=== PATIENT | female | born 1950 | race Caucasian/White ===

== ENCOUNTER 2016-08-15 08:43 | Inpatient (IN) | payer MEDICARE ==
--- NOTE | 2016-08-12 09:37 | HP ---
DATE OF CLINIC: 08/03/2016 JUDIE LOPEZ : 1950 PLANNED PROCEDURE: Right Total Knee Arthroplasty DATE OF SURGERY: August 15, 2016 SURGEON: Varinder Vann M.D. PCP: Jimi Zaragoza M.D. HISTORY OF PRESENT ILLNESS Judie Lopez is a 66 year old female. * Medication list reviewed with patient allergy list reviewed with patient. Mrs. Lopez is in today pre-operatively for her upcoming right total knee arthroplasty with Dr. Vann on 08/15/16. Patient presents in good spirits and is ready to proceed. She denies recent illness, change in health, or prior surgical complications. Her recent consult with Dr. Vann follows: 66-year-old female here for a consultation with respect to her right knee. She is a previous patient of Dr. Fraga, but has recently been seen by Wil on 12/23/15. She gives a history of a remote traumatic injury to her knee with an ACL tear, medial meniscal tear and medial collateral ligament tear. Specific details are unclear. She had an arthroscopy in [address] Newman at [facility] with some improvement. Unfortunately over greater than 5 years, she has had progressive weight-bearing related discomfort that is affecting her function. This is more notable at started, also with loaded flexion such as stairs. In addition, she notes an increase in right knee deformity. She has sensation of "catching and popping". She does use ibuprofen with some help. She continues to try walking for exercise as well as swimming. No night pain, mild rest pain, no hip pain, no radicular symptoms. She has no significant comorbidities. She is recovering from a distal radius fracture which has been managed by Dr. Benoit. In addition, she has mitral valve prolapse by echocardiogram. She has had bone density study that she reports as "normal". CURRENT MEDICATION * Fish Oil 1000 MG Capsule 1 once a day 0 days, 0 refills PAST MEDICAL/SURGICAL HISTORY Reported: Surgical / Procedural: Appendectomy 12/1958 and Arthroscopy Right knee 11/20/04. SOCIAL HISTORY Behavioral: Caffeine use and non-smoker never smoked. Smoking status: Never smoker. Alcohol: Alcohol use. ALLERGIES * Demerol REVIEW OF SYSTEMS Systemic: No fever and no recent weight change. Head: No head symptoms. Cardiovascular: No cardiovascular symptoms. Pulmonary: No pulmonary symptoms. Gastrointestinal: No gastrointestinal symptoms. Psychological: No psychological symptoms. Skin: No skin lesions and no rash. PHYSICAL FINDINGS * Vitals taken 08/03/2016 10:07 am BP-Sitting L 132/81 mmHg 100 - 120/56 - 80 BP Cuff Size Regular Pulse Rate-Sitting 74 bpm 50 - 100 Temp-Oral 97.6 F 96 - 101 Height 62 in 59 - 68 Weight 142 lbs 96 - 178 Body Mass Index 26.0 kg/m2 Body Surface Area 1.65 m2 Pain Level 2 Ears, Nose, Throat: * ENT: normal. Lungs: * Clear to auscultation. Cardiovascular: Heart Rate and Rhythm: * Normal with a systolic murmur of . Abdomen: * Normal. Neurological: Motor: * Dominant Hand = Right Hand. Patient is a thin, well-developed, well-nourished female in no acute distress, normal-appearing mood and affect. She ambulates with a stiff-legged antalgic gait notable at startup, although then becomes relatively symmetric heel-to-toe. On standing she has fairly notable varus with a varus thrust on weight-bearing. Evaluation of the right knee shows genu varum. This is correctable to neutral. She is tender medial greater than lateral. There is mild swelling. There seems to be more focally laterally likely because of her deformity, trace effusion. Motion is 0-120 actively, 0-125 passively. Patella tracks well. There is some crepitation with compression that is uncomfortable. She is tender over the lateral and medial jointline, fairly diffuse. She does have positive anterior drawer, asymmetric Tevin's. Negative posterior sag, 1+ laxity to varus stress, stable to valgus. Mildly tender over the anteromedial proximal tibia. Calf is soft and NT. Distal light touch sensation and motor function are intact and symmetric. Pulses are palpable. Gentle rotation of the hip is non-irritable. Contralateral knee shows neutral alignment. No focal tenderness with normal ligamentous exam. Motion 0-125 degrees. TESTS Recent radiographs from 12/23/15 were reviewed with the patient. These show significant flattening medial femoral condyle with sloping proximal medial tibial wear and periarticular sclerosis as well as marginal spurring and joint space narrowing. Lateral compartment is relatively well preserved. Patellofemoral articulation shows spurring lateral facet with reasonable alignment. ASSESSMENT * Localized primary osteoarthritis of the right knee Advanced degenerative disease, right knee, with varus deformity. PREVIOUS TESTS * Test: CBC WITH DIFF Report Date: 07/27/2016 WBC 7.5 10*3/mL BASOPHIL 0.9 % RBC 4.87 10*6/uL NEUTROPHILS 55.3 % MCH 30.0 pg MCHC 33.3 g/dL RDW 12.4 % MCV 89.9 fL PLATELET COUNT 276 10*3/mL IMM NEUT % 0.1 % IMM NEUT # 0.0 10*3/mL MONOCYTES 7.2 % EOSINOPHIL 4.4 % High HCT 43.8 % HGB 14.6 g/L LYMPHOCYTE 32.1 % ANC 4.1 10*3/mL * Test: URINALYSIS Report Date: 07/27/2016 GLUCOSE NEGATIVE PH,URINE 6.0 SPEC. GRAVITY 1.015 KETONE NEGATIVE NITRITE NEGATIVE BLOOD NEGATIVE BILIRUBIN NEGATIVE APPEARANCE CLEAR PROTEIN NEGATIVE COLOR YELLOW LEUK ESTERASE NEGATIVE UROBILINOGEN NORMAL * Test: PROTHROMBIN TIME Report Date: 07/27/2016 PROTIME 9.6 s INR 0.91 * Test: PARTIAL THROMBOPLASTIN TIME Report Date: 07/27/2016 APTT 24.2 s Low * Test: COMPREHENSIVE METABOLIC PANEL Report Date: 07/27/2016 ALT/SGPT 19 U/L ALBUMIN 4.3 g/dL ALB/GLOB RATIO 1.8 BUN 18 mg/dL BUN/CREAT RATIO 26 High CALCIUM 9.8 mg/dL GLUCOSE 84 mg/dL CREATININE 0.7 mg/dL SODIUM 137 meq/L POTASSIUM 4.2 meq/L CHLORIDE 102 meq/L CARBON DIOXIDE 28 meq/L ANION GAP 11 meq/L TOT PROTEIN 6.7 g/dL GLOBULIN 2.4 g/dL BILI,TOTAL 0.3 mg/dL AST/SGOT 22 U/L ALK PHOSPHATASE 68 U/L GFR 83 * Test: MRSA SCREEN Report Date: 07/28/2016 MRSA SCREEN NEGATIVE * Test: MSSA SCREEN Report Date: 07/28/2016 MSSA SCREEN NEGATIVE FOR STAPHYLOCOCCUS AUREUS THERAPY * Patient fall risk screen negative. Patient fall risk screen positive. * Patient eligible for fall risk assessment. * Patient received fall risk assessment. COUNSELING/EDUCATION * Education and counseling Total Joint Book given PLAN * Aftercare following joint replacement surgery TraMADol HCl 50 MG TABS, four times a day, 10 days, 0 refills OxyCODONE HCl 5 MG TABS, 1or 2 tablets every 4 to 6 hours as needed, 5 days, 0 refills OxyCONTIN 10 MG T12A, 1 twice a day, 10 days, 0 refills * Total knee arthroplasty -Right I talked to the patient regarding my thoughts and findings. We reviewed radiographs as well as the progressive nature of degenerative arthritis. Definitive management of this would entail arthroplasty. We did discuss symptomatic measures as well. We reviewed the limitations, expectations as well as risks and possible complications of total joint replacement. After discussion she would like to proceed. We did discuss patient specific instrumentation. I would plan a Legion Visionaire construct. She is interested in proceeding in July. I think that is reasonable. She will be enrolled in the arthroplasty program and we would see her back preoperatively for additional discussion and review. Discussed with patient in detail the limitations, expectations as well as risks and possible complications of surgery including, but not limited to wound problems or infection, neurovascular injury, continued knee pain or dysfunction, including the possibility of prosthetic wear or failure over time that may require additional operative or non-operative treatment. Patient also realizes the perioperative risks including risks associated with anesthesia and would like to proceed. A full PAR conference was held, questions and concerns addressed and informed consent was obtained. Patient will be sent from my office for completion of the preoperative workup[facility]. Patient will use aspirin 325mg daily for 6 weeks postoperatively for DVT prophylaxis. Patient would like to perform their postop PT at [facility] with total knee arthroplasty protocol. CARE TEAM Jimi Zaragoza MD [facility] CC: Jiim Zaragoza MD, PT [facility] RS/sg
[2016-08-15] MEDS ORDERED: CELECOXIB 200 MG CAPSULE PO ONE (11:30)
[2016-08-15] MEDS ORDERED: GABAPENTIN 600 MG TABLET PO ONE (11:30)
[2016-08-15] MEDS ORDERED: FAMOTIDINE 20 MG TABLET PO ONE (11:30)
[2016-08-15] MEDS ORDERED: CLONIDINE HCL 0.1 MG/24 HR (7 DAY PATCH) TD SCH (11:30)
[2016-08-15] MEDS ORDERED: TRAMADOL HCL 50 MG TABLET PO ONE (11:30)
[2016-08-15] MEDS ORDERED: ONDANSETRON 4 MG/2ML 2 ML VIAL IV ONE (11:30)
[2016-08-15] MEDS ORDERED: CEFAZOLIN SODIUM 2 GRAM PREMIX 100 ML IV PRN (11:30)
[2016-08-15] MEDS ORDERED: OXYCODONE HCL 10 MG TAB.SR PO ONE ×2 (11:30→12:18)
[2016-08-15] MEDS ORDERED: LACTATED RINGERS 1,000 ML ONE (11:35)
[2016-08-15] MEDS ORDERED: IV START KIT ONE (11:35)
[2016-08-15] MEDS ORDERED: PROPOFOL 20 ML IV ONE ×4 (11:35→15:12)
[2016-08-15] MEDS ORDERED: LIDOCAINE 2% (PRES FREE) 5 ML VIAL ONE (11:35)
[2016-08-15] MEDS ORDERED: FAMOTIDINE 20 MG TABLET ONE (12:18)
[2016-08-15] MEDS ORDERED: ONDANSETRON 4 MG/2ML 2 ML VIAL ONE (12:18)
[2016-08-15] MEDS ORDERED: TRAMADOL HCL 50 MG TABLET ONE (12:18)
[2016-08-15] MEDS ORDERED: CLONIDINE HCL 0.1 MG/24 HR (7 DAY PATCH) TD ONE (12:19)
[2016-08-15] MEDS ORDERED: GABAPENTIN 600 MG TABLET ONE (12:19)
[2016-08-15] MEDS ORDERED: CELECOXIB 200 MG CAPSULE ONE (12:19)
[2016-08-15] MEDS ORDERED: FENTANYL 250 MCG/5 ML AMP ONE (12:53)
[2016-08-15] MEDS ORDERED: MIDAZOLAM HCL 5 MG/5 ML VIAL ONE (12:53)
[2016-08-15] MEDS ORDERED: SPINAL PROCEDURAL TRAY 1 EACH ONE (12:56)
[2016-08-15] MEDS ORDERED: ROPIVACAINE 0.2% 20 ML VIAL ONE (12:56)
[2016-08-15] MEDS ORDERED: NERVE BLOCK PROCEDURAL TRAY 1 EACH ONE (12:56)
[2016-08-15] MEDS ORDERED: POLYMYXIN B SULFATE 500,000 UNITS, BACITRACIN 25,000 UNITS in SODIUM CHLORIDE 3 L IRRIG... IR PRN (13:30)
[2016-08-15] MEDS ORDERED: BUPIVACAINE 0.25% (MDV) 24 ML, MORPHINE SULFATE 8 MG, EPINEPHRINE 0.3 MG in SODIUM CHLO... IF PRN (13:30)
[2016-08-15] MEDS ORDERED: BUPIVACAINE 0.25% (MDV) 20 ML in SODIUM CHLORIDE 0.9% FLUSH 20 ML IF PRN (13:30)
[2016-08-15] MEDS ORDERED: TRANEXAMIC ACID 1,000 MG in SODIUM CHLORIDE 0.9% 100 ML IV PRN (13:30)
[2016-08-15] MEDS ORDERED: DEXAMETHASONE SOD PHOS 4 MG/1 ML VIAL ONE (14:46)
[2016-08-15] MEDS ORDERED: ONDANSETRON 4 MG/2ML 2 ML VIAL IV PRN ×2 (14:51→17:21)
[2016-08-15] MEDS ORDERED: EPHEDRINE SULFATE UD SYR 25 MG 25 MG/5 ML SYRINGE IV ONE ×2 (14:51→15:21)
[2016-08-15] MEDS ORDERED: NALOXONE HCL 0.4 MG/ML VIAL IV PRN (14:51)
[2016-08-15] MEDS ORDERED: ATROPINE SULFATE 0.4 MG/1 ML VIAL IV PRN (14:51)
[2016-08-15] MEDS ORDERED: HYDROMORPHONE HCL 1 MG/ML SYRINGE IV PRN (14:51)
[2016-08-15] MEDS ORDERED: PROMETHAZINE HCL 25 MG/ML VIAL IM PRN (14:51)
[2016-08-15] MEDS ORDERED: FENTANYL 100 MCG/2 ML VIAL IV PRN (14:51)
[2016-08-15] MEDS ORDERED: LACTATED RINGERS 1,000 ML IV SCH (15:00)
[2016-08-15] MEDS ORDERED: ON-Q PUMP/ROPIVACAINE 0.2% 450 ML ONE (16:10)
[2016-08-15] MEDS: ON-Q PUMP/ROPIVACAINE 0.2% 450 ML in PREMIX BAG 1 EACH NB PRN (16:40)
--- NOTE | 2016-08-15 16:42 | PCMBPN ---
Brief Post Op Note: Date of Procedure: 08/15/16 Preoperative Diagnosis: right knee DJD Postoperative Diagnosis: same Procedure: right TKA Surgeon: Varinder Vann MD Assist: Carlos (APOLINAR) Anesthesia: spinal/add block (Silvia) Condition: stable to PAR Complications: none IV Fluids: 1800 mLs of LR Urine Output: 175 mLs Estimated Blood Loss: 150 mLs Tourniquet Time: ~45 minutes Specimens: [N/A] Implants: Legion Drains: none
[2016-08-15] MEDS ORDERED: TEMAZEPAM 15 MG CAPSULE PO PRN (17:21)
[2016-08-15] MEDS ORDERED: OXYCODONE HCL 5 MG TABLET PO PRN (17:21)
[2016-08-15] MEDS ORDERED: CALCIUM CARBONATE 500 MG TAB.CHEW PO PRN (17:21)
[2016-08-15] MEDS ORDERED: HYDROMORPHONE HCL 0.5 MG/0.5 ML SYRINGE IV PRN (17:21)
[2016-08-15] MEDS ORDERED: KETOROLAC TROMETHAMINE 30 MG/ML 1 ML VIAL IV PRN (17:21)
--- NOTE | 2016-08-15 17:52 | RAD ---
EXAMINATION: KNEE RIGHT 1 OR 2 VIEWS INDICATION:Status post right total knee arthroplasty. TECHNIQUE: 2 views of the right knee were obtained. COMPARISON: Presurgical study dated 12/18/2015. A Right total knee arthroplasty is noted. No hardware fracture or loosening is identified. Alignment is anatomic. Destruction of the soft tissues compatible to recent postsurgical changes noted. No adjacent fractures identified. IMPRESSION: Satisfactory immediate postoperative appearance right total knee arthroplasty.
[2016-08-15 17:56] VITALS: BMI 24.7
[2016-08-15] MEDS ORDERED: PUMP TUBING ONE (19:37)
[2016-08-15] MEDS: D5 1/2NS with 20 mEq KCL 1,000 ML IV SCH (19:45)
[2016-08-15] MEDS ORDERED: ROSUVASTATIN CALCIUM 10 MG TABLET PO SCH (20:00)
[2016-08-15] MEDS: DOCUSATE SODIUM 100 MG CAPSULE PO SCH (21:37)
[2016-08-15] MEDS: ASCORBIC ACID 500 MG TABLET PO SCH (21:37)
[2016-08-15] MEDS ORDERED: CEFAZOLIN SODIUM 1 GRAM PREMIX 50 ML IV ONE (23:25)
[2016-08-15] MEDS: ACETAMINOPHEN 500 MG TABLET PO SCH (23:29)
[2016-08-15] MEDS: CEFAZOLIN SODIUM 1 GRAM PREMIX 1 G in Premix (D5W) 50 ml 1 EACH IV SCH (23:29)
[2016-08-15] MEDS ORDERED: TRAMADOL HCL 50 MG TABLET PO PRN (23:30)
[2016-08-16] MEDS: D5 1/2NS with 20 mEq KCL 1,000 ML IV SCH ×3 (03:58→18:00)
[2016-08-16] MEDS: ACETAMINOPHEN 500 MG TABLET PO SCH ×3 (04:01→17:18)
[2016-08-16] MEDS: CEFAZOLIN SODIUM 1 GRAM PREMIX 1 G in Premix (D5W) 50 ml 1 EACH IV SCH (05:47)
[2016-08-16 06:15] LABS: HEMATOCRIT 36.6 % (37.0-47.0); HEMOGLOBIN 11.7 gm/l (12.0-16.0); MEAN CELL VOLUME 93.4 fl (81.0-99.0); MEAN CORPUSCULAR HEMOGLOBIN 29.8 pg (27.0-31.0); RED CELL DISTRIBUTION WIDTH 12.6 % (11.5-14.5)
[2016-08-16 06:31] LABS: CALCIUM 8.4 mg/dL (8.6-10.3)
[2016-08-16] MEDS: ON-Q PUMP/ROPIVACAINE 0.2% 450 ML in PREMIX BAG 1 EACH NB PRN ×4 (08:05→14:50)
[2016-08-16] MEDS ORDERED: PNEUMOCOCCAL 23-VAL P-SAC VAC 0.5 ML VIAL IM V ONE (09:00)
[2016-08-16] MEDS ORDERED: MULTIVITAMINS 1 TAB TABLET PO SCH (09:00)
[2016-08-16] MEDS ORDERED: ASPIRIN (ENTERIC COATED) 325 MG TABLET.EC PO SCH (09:00)
[2016-08-16] MEDS ORDERED: CELECOXIB 200 MG CAPSULE PO SCH (09:00)
[2016-08-16] MEDS: DOCUSATE SODIUM 100 MG CAPSULE PO SCH (10:28)
[2016-08-16] MEDS: ASCORBIC ACID 500 MG TABLET PO SCH (10:29)
[2016-08-16] MEDS ORDERED: REMOVE PATCH 1 EACH UNIT TD SCH (11:30)
--- NOTE | 2016-08-16 13:11 | PDOC43 ---
- Subjective Findings: Pt seen this afternoon up and doing well. She is sitting in recliner. Pain is minimal and has been doing PT throughout the morning. Subjective: Reports Pain Tolerable, Denies Chest Pain, Denies Shortness of Breath, Denies Nausea, Denies Vomiting, Denies Fever - Objective Vital Signs Temperature 98.0 F 08/16/16 11:28 Pulse Rate 67 08/16/16 11:28 Respiratory Rate 16 08/16/16 11:28 Blood Pressure 108/68 08/16/16 11:28 O2 Saturation by Pulse Oximetry 100 08/16/16 11:28 Oxygen Delivery Method Room Air Oxygen Flow Rate 0 Laboratory 08/16/16 05:45 08/16/16 05:45 08/16/16 05:45 RBC 3.92 L MCHC 32.0 L Estimated GFR 123 H Calcium 8.4 L Active Medication Orders Category Date Time Status Acetaminophen [Tylenol] Med 08/15/16 23:00 Active 1,000 mg PO Q6H Ascorbic Acid [Vitamin C] Med 08/15/16 21:00 Active 500 mg PO BID Aspirin (Enteric Coated) [Ecotrin] Med 08/16/16 09:00 Active 325 mg PO DAILY Bisacodyl [Dulcolax] Med 08/18/16 16:36 Active 10 mg [place] DAILY PRN Calcium Carbonate [Tums] Med 08/15/16 17:21 Active 1,000 - 2,000 mg PO Q2H PRN Celecoxib [Celebrex] Med 08/16/16 09:00 Active 200 mg PO DAILY D5 1/2NS with 20 mEq KCL [D51/2NS with 20 mEq KCL] 1, Med 08/15/16 17:21 Active 000 ml IV 125 mls/hr Docusate Sodium [Colace] Med 08/15/16 21:00 Active 100 mg PO BID Hydromorphone HCl [Dilaudid] Med 08/15/16 17:21 Active 0.5 mg IV Q1H PRN Ketorolac Tromethamine [Toradol] Med 08/15/16 17:21 Active 30 mg IV Q6H PRN Magnesium Hydroxide [Milk of Magnesia] Med 08/16/16 16:36 Active 30 ml PO DAILY PRN Multivitamins [One-A-Day] Med 08/16/16 09:00 Active 1 tab PO DAILY On-Q Pump/Ropivacaine 0.2% 450 ml Med 08/15/16 17:21 Active Premix Bag [Premix Fluid] 1 each NB Q50H Ondansetron 4 mg/2ml Vial [Zofran] Med 08/15/16 17:21 Active 4 - 6 mg IV Q6H PRN Oxycodone HCl [Roxicodone] Med 08/15/16 17:21 Active 5 - 10 mg PO Q4H PRN Remove Patch Med 08/16/16 16:36 Once 1 each TD X1 ONE Rosuvastatin Calcium [Crestor] Med 08/15/16 20:00 Active 10 mg PO QPM Sodium Chloride 0.9% Flush [Normal Saline 10ml Flush] Med 08/15/16 17:21 Active 10 - 50 ml IV PRN PRN Sodium Chloride 0.9% Flush [Normal Saline 10ml Flush] Med 08/16/16 01:00 Active 10 ml IV Q8HR Temazepam [Restoril] Med 08/15/16 17:21 Active 15 mg PO BEDTIME PRN Tramadol HCl [Ultram] Med 08/15/16 23:30 Active 50 mg PO Q6H PRN Intake and Output 08/14/16 08/15/16 08/16/16 23:59 23:59 23:59 Intake Total 2083 Output Total 1250 Balance 833 General: Afebrile HEENT: Atraumatic Lungs: Normal Air Movement Abdomen: Non-Distended Skin: Normal Color Neurological: Alert, Oriented x 4 Psych/Mental Status: Normal Affect, Normal Mood - Right Lower Extremity Motor: Extensor Hallucis Longus: 5/5, Tibialis Anterior: 5/5, Gastrocnemius: 5/5 , Peroneals: 5/5, Quadriceps: 3/5 Gross Sensation to Light Touch: Present: Deep Peroneal Nerve, Superficial Peroneal Nerve Motion: Calf soft NT Rom knee 0-85 Ind SLR - Problems (1) Status post right knee replacement Status: AcuteAssessment/Plan: pod#1 1. Physical Therapy:Mobilize with PT/OT. If meets goal this afternoon my consider D/C 2. Pain Control:Per protocol. Not having much pain at this point 3. DVT Prophylaxis: ASA, foot pumps and mobility 4. Disposition:Doing well 5. Medical Issues:May consider discharge today if meets criteria
[2016-08-16 15:33] VITALS: BP 102/68
[2016-08-16] MEDS ORDERED: MAGNESIUM HYDROXIDE 30 ML UDCUP PO PRN (16:36)
[2016-08-16] MEDS ORDERED: REMOVE PATCH 1 EACH UNIT TD ONE (16:36)
--- NOTE | 2016-08-17 10:28 | DS ---
Joanie LPOEZ [id number] : 1950 DATE OF ADMISSION: August 15, 2016 DATE OF DISCHARGE: August 16, 2016 DISCHARGE DIAGNOSES: Right knee osteoarthritis. HOSPITAL PROCEDURES: Right total knee arthroplasty. SURGEON: Varinder Vann M.D. BRIEF HISTORY: Patient is a 66-year-old female with clinical and radiographic evidence of advanced DJD of their right knee. For the full history please see the chart note. BRIEF HOSPITAL COURSE: Patient was admitted on August 15, 2016. Dr. aVrinder Vann performed a right total knee arthroplasty. They were moved to the recovery room in stable condition. They were given 4 doses of antibiotic for empiric coverage. DVT prophylaxis consisted of enteric-coated aspirin, JOSELITO hose and AV foot pumps. PT was instituted postop day, 0 with right total knee arthroplasty protocol, weightbearing as tolerated. Their incision site remained benign, their vital signs remained stable and they remained neurally and vascularly intact through the duration of the stay. They were discharged home on postop day, 1 to continue their outpatient PT at [facility] with right total knee arthroplasty protocol, weightbearing as tolerated. DISCHARGE INSTRUCTIONS: 1. Keep the wound site clean. May shower with Aquacel dressing intact. Call office with any questions or concerns and f/u for your dressing change as scheduled 1 week postop. 2. Continue the use of JOSELITO hose bilaterally. 3. Cooling unit 3-4 times daily for 30 minutes duration. 4. Outpatient PT at [facility] for right total knee arthroplasty protocol, weightbearing as tolerated. MEDICATIONS: 1. Patient is to resume normal preop medications. 2. Anti-coagulation will be with enteric-coated aspirin 325 mg for six weeks. 3. Pain management will be with Oxycodone, 5mg 1-2 every 4 hours prn for breakthrough pain, Celebrex 200 mg one by mouth every day for two weeks. 4. Patient was also advised on utilization of a multi-vitamin with mineral daily as well as Vitamin C, 500mg daily for 1 month. 5. Patient encouraged to take an iron supplement in the form of ferrous sulfate, 325mg daily for 4 weeks. 6. Colace, 100mg, b.i.d. until regular bowel movement. FOLLOW-UP: Please return to the clinic as scheduled for your first scheduled postop check. Prior to that point in time please call with any questions or concerns. Job [id number] CC: Michoacano Zaragoza M.D. Family Practice
--- NOTE | 2016-08-17 10:29 | OP ---
JUDIE LOPEZ [id number] : 1950 DATE OF SURGERY: August 15, 2016 PREOPERATIVE DIAGNOSIS: Degenerative joint disease right knee POSTOPERATIVE DIAGNOSIS: Same PROCEDURE: Right Total Knee Arthroplasty COMPONENTS: Legion size 5 narrow posterior stabilized Oxinium cemented femoral component, size 3 cemented tibial base plate, 10mm high flexion cross-linked polyethylene articular insert, 32mm resurfacing patella. SURGEON: Varinder Vann M.D. CHILDREN'S LITERATURE PROFESSOR: Carlos MACKEY) ANESTHESIA: Spinal plus adductor nerve block per Silvia ESTIMATED BLOOD LOSS: 150 cc IV FLUID REPLACEMENT: per anesthesia, 1.8 liters crystalloid. URINE OUTPUT: 175 cc DRAINS: None TOURNIQUET TIME: Approximately 45 minutes COMPLICATIONS: None HISTORY: Briefly, patient is a 66-year-old female with clinical and radiographic evidence of advanced degenerative disease of their right knee. They have failed traditional non-operative management and desire elective total knee arthroplasty. For additional details, please refer to the previously dictated Preoperative History and Physical Examination. A PAR conference was held, questions and concerns were addressed, and informed consent was obtained. FINDINGS: Tricompartmental changes with eburnated areas both medially and lateral femoral condyle and significant medial proximal tibial wear. PROCEDURE: The patient was taken to the operating room after the placement of a spinal anesthetic and regional nerve block. They were placed supine on the operating room table, a tourniquet was applied to the proximal thigh and the right lower extremity was prepped and draped out in the usual sterile fashion. Preoperative IV antibiotics were given empirically. Intraoperative DVT prophylaxis consisted of contralateral foot pumps. Personal filtration suits were used as was a closed room environment. A WHO timeout was taken. Surgical site was identified and confirmed. The leg was then elevated and the tourniquet inflated after gravity exsanguination. This was released after initial exposure and not utilized again until cementation. Tranexamic acid was infiltrated over 10 minutes prior to incision, 1 gram dose per protocol. A similar 2nd dose was given at initiation of closure. With the knee flexed, an anteromedial incision was made from the level of the tibial tubercle to two centimeters proximal to the superior pole of the patella. A medial arthrotomy was performed with a mini-mid vastus approach. A medial subperiosteal proximal tibial release was performed and a portion of the anterior fat pad was excised to improve visualization. The supra-patellar pouch was raised subperiosteally. The anterior and posterior cruciate ligaments were excised as were the remaining portions of the anterior horns of the medial and lateral menisci. Minimally invasive instrumentation and philosophy were used throughout the procedure in an attempt to decrease the extent of soft tissue disruption/damage. Patient matched cutting blocks were also used as per our preoperative plan. The [employer] patient matched distal femoral cutting block was applied and secured to the bone. We confirmed that the alignment matched our preoperative plan and made the distal femoral cut. We confirmed the size of the femur and placed the appropriate 4-in-1 cutting block making our anterior and posterior condylar cuts followed by the chamfer cuts. Residual marginal osteophytes were removed. Attention was then directed to the tibia which was retracted anteriorly. Remaining meniscal tissue was excised. The Visionaire patient matched tibial block was then positioned and secured to bone. Alignment was confirmed as per our preoperative plan and the proximal tibial cut made. The tibia was sized and we passed the 11 mm. punch. We then balanced the flexion and extension gaps by performing a limited posterior capsular release. We confirmed hemostasis. We then completed the femoral preparation by reaming and chiseling the notch. Femoral and tibial trial components were placed. We were able to obtain full extension with nice roll back and good coronal plane alignment and stability. The patella tracked well and was prepared using the Rosie patellar reaming system removing 9 mm. of bone. Osteophytes were removed prior to this with a rongeur and we performed a circumferential limited denervation using cautery. This was sized accordingly and punch holes were drilled. We marked our tibial rotation and removed the trial components after passing the cruciform tibial punch. The knee was then re-exsanguinated and the tourniquet inflated. Double antibiotic pulsatile lavage was used to irrigate the knee and clean the cancellous indy interstices which were then carefully dried. Periarticular injection was done at this point per protocol of the posterior capsule, posteromedial knee and synovium. Two doses of high viscosity, antibiotic impregnated polymethylmethacrylate were used to cement the tibial, femoral, and then patellar components. The knee was held in extension while the cement cured. All residual methacrylate was meticulously removed. Attention was then directed towards closure. We irrigated and the retinaculum was closed with a running #2 absorbable Strato-Fix suture. A second periarticular injection was done at this point per protocol. The repair was checked in maximum flexion. We then lightly irrigated the subcutaneous tissue and closed with interrupted 2-0 and 3-0 Vicryl Plus. The skin was then reapproximated with a subcuticular 4-0 Monocryl followed by Dermabond Prineo. A sterile compression dressing was applied. The patient was then transferred to their hospital bed and sent to the post anesthesia recovery room in stable condition. They tolerated the procedure well. Sponge, instrument, and needle count were correct. CC: Jimi Zaragoza MD [facility]
[2016-08-18] MEDS ORDERED: BISACODYL 10 MG SUP PR PRN (16:36)
== END 2016-08-16 17:55 | disposition home or self-care (01) | DRG 470 ==
LOC: OR 11:20 → MS 17:54
PROVIDERS: ADMIT Orthopaedic Surgery; ATTEND Orthopaedic Surgery
PROC: 0SRC0J9 Replacement of Right Knee Joint with Synthetic Substitute, Cemented, Open Approach (ICD-10-PCS; principal; 2016-08-15)
DX: M17.11 Unilateral primary osteoarthritis, right knee (principal); M21.161 Varus deformity, not elsewhere classified, right knee; I34.1 Nonrheumatic mitral (valve) prolapse; S52.509D Unspecified fracture of the lower end of unspecified radius, subsequent encounter for closed fracture with routine healing; Z88.5 Allergy status to narcotic agent